=== PATIENT | female | born 2000 | race American Indian/Alaskan Native ===

== ENCOUNTER 2018-07-21 14:20 | Emergency (ER) | payer SELFPAY ==
[2018-07-21] MEDS ORDERED: NORCO 5/325 PO STA (17:34)
[2018-07-21] MEDS ORDERED: XYLOCAINE 2% INFILTRATI STA (17:34)
--- NOTE | 2018-07-21 17:40 | Emergency Department Report ---
- General Chief Complaint: Wound/Laceration Stated Complaint: FELL CUT ANKLE Time Seen by Provider: 07/21/18 17:30 Source: patient Mode of arrival: Ambulatory Limitations: No Limitations - History of Present Illness -: hour(s) (5) Location: other (rightheel ) Place: home (fall down steps andhit foot on something) Patient Tetanus UTD: No (unsure) Context: accidental Associated Symptoms: denies: loss of feeling/numbness, suspect foreign body present, unable to move injured part, weakness followed by dizziness, nausea/ vomiting, fever, other Treatments Prior to Arrival: bandage - Related Data Previous Rx's Medication Instructions Recorded Last Taken Type Naproxen [Naprosyn TAB] 500 mg PO BID #20 tablet 06/24/14 Unknown Rx Acetaminophen/Codeine [Tylenol #3] 1 tab PO Q6H PRN #15 tab 07/21/18 Unknown Rx Chlorhexidine Gluconate [Hibiclens] 10 ml TP BID #240 liquid 07/21/18 Unknown Rx cephALEXin [Keflex] 500 mg PO Q6HR #40 capsule 07/21/18 Unknown Rx Allergies Allergy/AdvReac Type Severity Reaction Status Date / Time No Known Allergies Allergy Verified 07/21/18 14:43 ED Review of Systems ROS: Stated complaint: FELL CUT ANKLE Other details as noted in HPI Constitutional: denies: chills Eyes: denies: eye pain ENT: denies: ear pain Respiratory: denies: cough, orthopnea Cardiovascular: denies: chest pain, palpitations Endocrine: denies: intolerance to cold, intolerance to heat Gastrointestinal: denies: nausea, vomiting Musculoskeletal: denies: back pain Skin: denies: rash, lesions, change in color, change in hair/nails Neurological: denies: weakness Psychiatric: denies: anxiety, depression ED Past Medical Hx - Past Medical History Previous Medical History?: No - Surgical History Past Surgical History?: No - Social History Smoking Status: Never Smoker Substance Use Type: None - Medications Home Medications: Home Medications Medication Instructions Recorded Confirmed Last Taken Type Naproxen [Naprosyn TAB] 500 mg PO BID #20 tablet 06/24/14 Unknown Rx Acetaminophen/Codeine [Tylenol #3] 1 tab PO Q6H PRN #15 tab 07/21/18 Unknown Rx Chlorhexidine Gluconate [Hibiclens] 10 ml TP BID #240 liquid 07/21/18 Unknown Rx cephALEXin [Keflex] 500 mg PO Q6HR #40 capsule 07/21/18 Unknown Rx ED Physical Exam - General Limitations: No Limitations General appearance: alert, in no apparent distress - Head Head exam: Present: atraumatic, normocephalic - Eye Eye exam: Present: normal appearance - ENT ENT exam: Present: mucous membranes moist - Neck Neck exam: Present: normal inspection - Respiratory Respiratory exam: Present: normal lung sounds bilaterally. Absent: respiratory distress - Cardiovascular Cardiovascular Exam: Present: regular rate, normal rhythm. Absent: systolic murmur, diastolic murmur, rubs, gallop - GI/Abdominal GI/Abdominal exam: Present: soft, normal bowel sounds - Extremities Exam Extremities exam: Present: normal inspection, other (the Achilles tendon was visualized and intact. Coon's test is normal for range of motion of ankle, foot and phalanges) - Expanded Lower Extremity Exam Right Hip exam: Absent: full ROM Upper Leg exam: Absent: full ROM Knee exam: Absent: full ROM Lower Leg exam: Absent: full ROM Ankle exam: Absent: full ROM Neuro vascular tendon exam: Present: no vascular compromise. Absent: abnormal cap refill Gait: Positive: antalgic 1 - laceration 2 - jagged laceration. coon testneg - Back Exam Back exam: Present: normal inspection, full ROM. Absent: muscle spasm, paraspinal tenderness, vertebral tenderness - Neurological Exam Neurological exam: Present: alert, oriented X3, CN II-XII intact - Psychiatric Psychiatric exam: Present: normal affect, normal mood - Skin Skin exam: Present: warm, dry, intact, normal color. Absent: rash ED Course Vital Signs 07/21/18 14:41 Temperature 98.4 F Pulse Rate 106 H Respiratory 16 Rate Blood Pressure 137/117 O2 Sat by Pulse 98 Oximetry - Laceration /Wound Repair Right Foot Wound Location: lower extremity Wound Length (cm): 6 Wound's Depth, Shape: irregular Wound Explored: clean Irrigated w/ Saline (ccs): 200 Betadine Prep?: Yes Anesthesia: 1% Lidocaine Wound Debrided: minimal Wound Repaired With: sutures Suture Size/Type: 3:0, proline Sterile Dressing Applied?: Yes ED Medical Decision Making - Medical Decision Making 13 sutures placed with no complications. Discussed with patient in detail wound management and the need for appropriate follow-up for wound reevaluation and suture removal Critical care attestation.: If time is entered above; I have spent that time in minutes in the direct care of this critically ill patient, excluding procedure time. ED Disposition Clinical Impression: Foot laceration Disposition: - TO HOME OR SELFCARE Is pt being admited?: No Does the pt Need Aspirin: No Condition: Stable Instructions: Laceration (ED), Suture Care (ED), Crutch Instructions (ED) Prescriptions: Acetaminophen/Codeine [Tylenol #3] 1 tab PO Q6H PRN #15 tab PRN Reason: Pain cephALEXin [Keflex] 500 mg PO Q6HR #40 capsule Chlorhexidine Gluconate [Hibiclens] 10 ml TP BID #240 liquid Referrals: PRIMARY CARE, [Primary Care Provider] - 3-5 Days [facility] [Provider Group] - 3-5 Days (Suture evaluation for removal in 12-14 days. Wound recheck in 3)
[2018-07-21] MEDS ORDERED: NACL 0.9% 500 ML IR ONE (17:48)
[2018-07-21] MEDS ORDERED: TENIVAC IM STA (17:54)
[2018-07-21] MEDS ORDERED: BOOSTRIX IM ONE (18:35)
[2018-07-21 19:11] VITALS: BP 103/74
== END 2018-07-21 19:31 | disposition home or self-care (01) ==
LOC: ED 14:20
DX: S91.311A Laceration without foreign body, right foot, initial encounter (principal); W10.8XXA Fall (on) (from) other stairs and steps, initial encounter; Y93.89 Activity, other specified; Y92.89 Other specified places as the place of occurrence of the external cause; Y99.8 Other external cause status
CPT/HCPCS: 90471; 90714; 90715

== ENCOUNTER 2019-07-15 17:26 | Emergency (ER) | payer MEDICAID ==
[2019-07-15 19:43] LABS: Basophils % (Auto) 0.8 % (0.0-1.8); Eosinophils # (Auto) 0.1 K/mm3 (0.0-0.4); Eosinophils % (Auto) 0.9 % (0.0-4.3); Hematocrit 35.5 % (30.3-42.9); Hemoglobin 11.7 gm/dl (10.1-14.3); Lymphocytes # (Auto) 1.1 K/mm3 (1.2-5.4); Lymphocytes % (Auto) 19.5 % (13.4-35.0); Mean Corpuscular HGB Conc 33 % (30-34); Mean Corpuscular Volume 82 fl (79-97); Monocytes # (Auto) 0.4 K/mm3 (0.0-0.8); Monocytes % (Auto) 6.4 % (0.0-7.3); Platelet Count 214 K/mm3 (140-440); Red Blood Count 4.32 M/mm3 (3.65-5.03); Red Cell Distribution Width 14.6 % (13.2-15.2)
[2019-07-15 20:08] LABS: Alanine Aminotransferase 9 units/L (7-56); BUN/Creatinine Ratio 15; Blood Urea Nitrogen 6 mg/dL (7-17); Hemolysis Index 0
[2019-07-15 20:30] VITALS: BP 116/77
[2019-07-15 20:38] LABS: Bilirubin,Urine NEG (Negative); Blood,Urine NEG (Negative); Color,Urine Yellow (Yellow); Mucus,Urine 3+ /HPF
[2019-07-15] MEDS ORDERED: FAMOTIDINE 20 MG TAB PO ONE (20:57)
[2019-07-15] MEDS ORDERED: ACETAMINOPHEN 500 MG TAB PO ONE (20:57)
[2019-07-15] MEDS ORDERED: METOCLOPRAMIDE 10 MG TAB PO ONE (20:57)
--- NOTE | 2019-07-15 21:04 | Emergency Department Report ---
ED N/V/D HPI - General Chief complaint: Abdominal Pain Stated complaint: 12WKS /CHEST PAIN/VOMIT Source: patient Mode of arrival: Ambulatory Limitations: No Limitations - History of Present Illness Initial comments: Patient is a A0 18-year-old -[place] female who is approximately 12 weeks gestation and presents to the ED with complaint of persistent interm ittent nausea and vomiting for the last 1 week. Patient states that she's not been able to keep anything down especially in the last 2 days. Patient denies dizziness, fever, chills, cough, abdominal pain, vaginal bleeding, vaginal discharge, diarrhea, dysuria, sore throat, cough or chest pain, urinary urgency and frequency or headache. MD complaint: nausea, vomiting -: Sudden, week(s) (1) Description of Vomiting: food contents, watery Associated Abdominal Pain: Yes (Mildly diffuse) Location: diffuse Radiation: none Severity: mild Pain Scale: 1 Quality: aching, dull Consistency: intermittent Improves with: none Worsens with: none Context: other () Associated Symptoms: denies other symptoms, loss of appetite, nausea/vomiting. denies: myalgias, chest pain, cough, diaphoresis, fever/chills, headaches, malaise, rash, dysuria, shortness of breath, syncope, weakness - Related Data Previous Rx's Medication Instructions Recorded Last Taken Type Naproxen [Naprosyn TAB] 500 mg PO BID #20 tablet 06/24/14 Unknown Rx Acetaminophen/Codeine [Tylenol #3] 1 tab PO Q6H PRN #15 tab 07/21/18 Unknown Rx Chlorhexidine Gluconate [Hibiclens] 10 ml TP BID #240 liquid 07/21/18 Unknown Rx cephALEXin [Keflex] 500 mg PO Q6HR #40 capsule 07/21/18 Unknown Rx Vit-Fe Fumar-FA [ 1 tab PO QDAY #60 tablet 07/15/19 Unknown Rx Vitamin] Promethazine [Phenergan] 25 mg PO Q6HR PRN #30 tab 07/15/19 Unknown Rx Allergies Allergy/AdvReac Type Severity Reaction Status Date / Time No Known Allergies Allergy Verified 07/15/19 17:52 ED Review of Systems ROS: Stated complaint: 12WKS /CHEST PAIN/VOMIT Other details as noted in HPI Constitutional: denies: chills, fever Eyes: denies: eye pain, eye discharge, vision change ENT: denies: ear pain, throat pain Respiratory: denies: cough, shortness of breath, wheezing Cardiovascular: denies: chest pain, palpitations Endocrine: no symptoms reported Gastrointestinal: nausea, vomiting. denies: diarrhea Genitourinary: denies: urgency, dysuria, discharge Musculoskeletal: denies: back pain, joint swelling, arthralgia Skin: denies: rash, lesions Neurological: denies: headache, weakness, paresthesias Psychiatric: denies: anxiety, depression Hematological/Lymphatic: denies: easy bleeding, easy bruising ED Past Medical Hx - Past Medical History Previous Medical History?: No - Surgical History Past Surgical History?: No - Social History Smoking Status: Never Smoker Substance Use Type: None - Medications Home Medications: Home Medications Medication Instructions Recorded Confirmed Last Taken Type Naproxen [Naprosyn TAB] 500 mg PO BID #20 tablet 06/24/14 Unknown Rx Acetaminophen/Codeine [Tylenol #3] 1 tab PO Q6H PRN #15 tab 07/21/18 Unknown Rx Chlorhexidine Gluconate [Hibiclens] 10 ml TP BID #240 liquid 07/21/18 Unknown Rx cephALEXin [Keflex] 500 mg PO Q6HR #40 capsule 07/21/18 Unknown Rx Vit-Fe Fumar-FA [ 1 tab PO QDAY #60 tablet 07/15/19 Unknown Rx Vitamin] Promethazine [Phenergan] 25 mg PO Q6HR PRN #30 tab 07/15/19 Unknown Rx ED Physical Exam - General Limitations: No Limitations General appearance: alert, in no apparent distress - Head Head exam: Present: atraumatic, normocephalic, normal inspection - Eye Eye exam: Present: normal appearance, PERRL, EOMI Pupils: Present: normal accommodation - ENT ENT exam: Present: normal exam, normal orophraynx, mucous membranes moist, TM's normal bilaterally, normal external ear exam - Neck Neck exam: Present: normal inspection, full ROM - Respiratory Respiratory exam: Present: normal lung sounds bilaterally. Absent: respiratory distress, wheezes, rales, rhonchi, chest wall tenderness, accessory muscle use, decreased breath sounds - Cardiovascular Cardiovascular Exam: Present: regular rate, normal rhythm, normal heart sounds. Absent: systolic murmur, diastolic murmur, rubs, gallop - GI/Abdominal GI/Abdominal exam: Present: soft, normal bowel sounds. Absent: tenderness, guarding, hyperactive bowel sounds, hypoactive bowel sounds, organomegaly - Extremities Exam Extremities exam: Present: normal inspection, full ROM, normal capillary refill - Back Exam Back exam: Present: normal inspection, full ROM - Neurological Exam Neurological exam: Present: alert, oriented X3, CN II-XII intact, normal gait, reflexes normal - Psychiatric Psychiatric exam: Present: normal affect, normal mood - Skin Skin exam: Present: warm, dry, intact, normal color. Absent: rash ED Course Vital Signs 07/15/19 07/15/19 17:56 20:28 Temperature 97.9 F 98.2 F Pulse Rate 81 69 Respiratory 16 16 Rate Blood Pressure 113/68 Blood Pressure 116/77 [Right] O2 Sat by Pulse 98 99 Oximetry ED Medical Decision Making - Lab Data Result diagrams: 07/15/19 19:12 07/15/19 19:12 - Medical Decision Making This is a 18-year-old female who presented to the ED with intractable nausea and vomiting intermittently for the last 1 week. Patient is approximately 12 weeks gestation. In the ED, patient is alert and oriented 3 and is not in distress. Lab test results were reviewed and are all nonactionable. Patient was treated for nausea and vomiting in the ED and also given a prescription for antiemetics. Patient was advised to follow-up with her [facility] physician 7-10 days for reevaluation or return to the ED immediately if symptoms get worse. - Differential Diagnosis hyperemesis gravidarum; ; viral gastroenteritis Critical care attestation.: If time is entered above; I have spent that time in minutes in the direct care of this critically ill patient, excluding procedure time. ED Disposition Clinical Impression: Hyperemesis gravidarum Disposition: DC-01 TO HOME OR SELFCARE Is pt being admited?: No Does the pt Need Aspirin: No Condition: Stable Instructions: Abdominal Pain (ED), Hyperemesis Gravidarum (ED) Additional Instructions: Take medications with food, drink plenty fluids and follow up with your primary care physician or [facility] physician in 7-10 days for reevaluation. Return to the ED immediately if symptoms get worse. Prescriptions: Promethazine [Phenergan] 25 mg PO Q6HR PRN #30 tab PRN Reason: Nausea Vit-Fe Fumar-FA [ Vitamin] 1 tab PO QDAY #60 tablet Referrals: PRIMARY CARE, [Primary Care Provider] - 3-5 Days Time of Disposition: 20:59 Print Language: DUTCH
== END 2019-07-15 21:37 | disposition home or self-care (01) ==
LOC: ED 17:26
DX: O21.0 Mild hyperemesis gravidarum (principal); Z79.899 Other long term (current) drug therapy; Z3A.12 12 weeks gestation of pregnancy
CPT/HCPCS: 36415; 80053; 81001; 83690; 84702; 85025

== ENCOUNTER 2020-01-08 19:27 | Inpatient (IN) | payer MEDICAID ==
[2020-01-08] MEDS ORDERED: LACTATED RINGERS 1,000 ML ONE (20:20)
[2020-01-08] MEDS ORDERED: LIDOCAINE (2%) 20 MG/1 ML VIAL 20 ML MDV INFILTRATI ONE (20:23)
[2020-01-08] MEDS ORDERED: TERBUTALINE 1 MG/1 ML INJ SUB-Q PRN (20:23)
[2020-01-08] MEDS ORDERED: ePHEDrine SULFATE 50 MG/1 ML INJ IV PRN (20:23)
[2020-01-08] MEDS ORDERED: fentaNYL 100 MCG/2 ML INJ IV PRN (20:23)
[2020-01-08] MEDS ORDERED: AMPICILLIN/NS 2 GM/100 ML 2 GM/100 ML BAG IV ONE (20:23)
--- NOTE | 2020-01-08 20:38 | History and Physical Report ---
History of Present Illness Date of examination: 01/08/20 Date of admission: 01/08/2020 Chief complaint: Contractions History of present illness: 19 y.o. presents to L&D with complaint of contractions since 10:00 AM today. Patient denies leaking of fluid or vaginal bleeding. Patient reports good movement. Patient received care at [facility] and records are available. LMP 04/11/2019. EDC 01/16/2020. significant for the following: + chlamydia (treated with Azithromycin); anemia (supplemented with iron); GBS positive; late entry to care, obesity. labs are as follows: B+, antibody screen negative, rubella immune, HIV negative, hepatitis B surface antigen negative, RPR nonreactive, hemoglobin electrophoresis AA, gonorrhea negative, chlamydia positive/negative, trichomonas negative, HSV 2 negative, diabetes screen 74, GBS positive. Past History Past Medical History: no pertinent history Past Surgical History: no surgical history [facility] [employer] [facility] History: chlamydia (treated and cured during ). denies: gonorrhea, hepatitis B, herpes, HIV, syphilis, trichomonas Family/Genetic History: none Social history: single, full code. denies: smoking, alcohol abuse, prescription drug abuse, IV drug use - Obstetrical History Expected Date of Delivery: 01/16/20 Actual Gestation: 38 Week(s) 6 Day(s) : 1 Para: 0 Hx # Term Pregnancies: 0 Number of Pregnancies: 0 Spontaneous Abortions: 0 Induced : 0 Number of Living Children: 0 Medications and Allergies Allergies Allergy/AdvReac Type Severity Reaction Status Date / Time No Known Allergies Allergy Verified 07/15/19 17:52 Home Medications Medication Instructions Recorded Confirmed Last Taken Type Vit-Fe Fumar-FA [ 1 tab PO QDAY #60 tablet 07/15/19 Unknown Rx Vitamin] Promethazine [Phenergan] 25 mg PO Q6HR PRN #30 tab 07/15/19 Unknown Rx Active Meds: Active Medications Ephedrine Sulfate (Ephedrine Sulfate) 10 mg IV Q2M PRN PRN Reason: Hypotension Fentanyl (Sublimaze) 100 mcg IV Q2H PRN PRN Reason: Labor Pain Oxytocin/Sodium Chloride (Pitocin/Ns 20 Unit/1000ml Drip) 20 units in 1,000 mls @ 125 mls/hr IV DIRECT SARAH Lactated Ringer's (Lactated Ringers) 1,000 mls @ 125 mls/hr IV DIRECT SARAH Ampicillin Sodium (Ampicillin/Ns 2 Gm/100 Ml) 2 gm in 100 mls @ 100 mls/hr IV ONCE ONE; Protocol Stop: 01/08/20 21:22 Ampicillin Sodium (Ampicillin/Ns 1 Gm/50 Ml) 1 gm in 50 mls @ 100 mls/hr IV Q4HR SARAH; Protocol Terbutaline Sulfate (Brethine) 0.25 mg SUB-Q ONCE PRN PRN Reason: Hyperstimulation/Hypertonicity Review of Systems All systems: negative (contractions) - Vital Signs Vital signs: Vital Signs Pulse BP 93 H 125/76 01/08/20 19:43 01/08/20 19:43 Temp Pulse Resp BP Pulse Ox 98.1 F 93 H 18 125/76 01/08/20 19:44 01/08/20 19:44 01/08/20 19:44 01/08/20 19:44 - Physical Exam Abdomen: Positive: normal appearance, soft. Negative: distention, tenderness, guarding, rigidity Genitourinary (Female): Positive: normal external genitalia, normal perenium. Negative: perineal/vulvar lesions (no lesions noted on careful exam with bright light upon admission) Vagina: Positive: normal moisture Uterus: Positive: enlarged (S=D) Anus/Rectum: Positive: normal perianal skin Extremities: Positive: normal. Negative: edema - Obstetrical FHR: category 2 Uterine Contraction Monitor Mode: External Cervical Dilatation: 4.5 (on admission) Cervical Effacement Percentage: 90 station: -2 Results Result Diagrams: 01/08/20 20:25 01/08/20 20:25 All other labs normal. Assessment and Plan A: at 38 6/7 weeks gestation. Labor. GBS positive. P: Admit. Continuous EFM. GBS prophylaxis. Epidural.
[2020-01-08] MEDS ORDERED: OXYTOCIN 20 UNIT/1000ML DRIP 20 UNITS/1,000 ML BAG IV SCH (21:00)
[2020-01-08] MEDS: LACTATED RINGERS 1,000 ML IV SCH (21:26)
[2020-01-08 21:28] LABS: Basophils % (Auto) 0.5 % (0.0-1.8); Eosinophils % (Auto) 0.3 % (0.0-4.3); Hemoglobin 11.8 gm/dl (10.1-14.3); Lymphocytes # (Auto) 1.3 K/mm3 (1.2-5.4); Lymphocytes % (Auto) 19.1 % (13.4-35.0); Mean Corpuscular HGB Conc 32 % (30-34); Mean Corpuscular Volume 78 fl (79-97); Monocytes # (Auto) 0.5 K/mm3 (0.0-0.8); Monocytes % (Auto) 8.1 % (0.0-7.3); Platelet Count 177 K/mm3 (140-440); Red Blood Count 4.77 M/mm3 (3.65-5.03); Red Cell Distribution Width 17.7 % (13.2-15.2)
[2020-01-08 21:58] LABS: Albumin 3.4 g/dL (3.9-5); BUN/Creatinine Ratio 9; Blood Urea Nitrogen 7 mg/dL (7-17); Calcium 9.1 mg/dL (8.4-10.2); Hemolysis Index 255
[2020-01-08 22:02] LABS: Alanine Aminotransferase 12 units/L (7-56)
[2020-01-08] MEDS ORDERED: hydrALAZINE 20 MG/1 ML INJ IV PRN (23:38)
[2020-01-08] MEDS ORDERED: MAGNESIUM SULFATE 4 GM/100 ML BAG IV ONE (23:38)
[2020-01-08] MEDS ORDERED: MAGNESIUM SULFATE 40GM/1000ML 40 GM/1,000 ML BAG IV SCH (23:45)
--- NOTE | 2020-01-08 23:57 | Event Note ---
Date: 01/08/20 Patient is now 7 cm dilated. FSE has been placed to better trace heart rate. Meconium stained amniotic fluid noted upon FSE application/ROM. FHR baseline 135-140 with minimal to moderate variability. Patient positioned in lateral position and oxygen applied per face mask. Several elevated blood pressures noted. Additional labs ordered and urine for protein. Magnesium Sulfate ordered and Hydralazine ordered. Consulted with Dr. Thomas re: this patient, elevated blood pressure, FHR tracing, interventions taken. Patient refuses epidural.
[2020-01-09] MEDS ORDERED: AMPICILLIN/NS 1 GM/50 ML 1 GM/50 ML BAG IV SCH (00:28)
[2020-01-09] MEDS ORDERED: ONDANSETRON 4 MG/2 ML INJ IV ONE (00:50)
[2020-01-09] MEDS ORDERED: ONDANSETRON 4 MG/2 ML INJ ONE (00:52)
--- NOTE | 2020-01-09 01:29 | Event Note ---
Date: 01/09/20 SVE 8/-1 to -2. Patient has strong urge to push; still refuses epidural. Instructed patient to breathe with contractions and not to push yet. Patient positioned in lateral position. FHR baseline 135-140 with minimal to moderate variability and variable FHR decelerations. Position change instituted. Contractions every 2-3 minutes. Uterus palpates soft between contractions. Patient continues to receive magnesium sulfate. BPs stable. Consulted with Dr. Thomas at 1:17 AM re: heart rate tracing, variable decelerations, variability, cervical exam, interventions taken. No new orders received.
[2020-01-09] MEDS ORDERED: LIDOCAINE (2%) 20 MG/1 ML VIAL 20 ML MDV INFILTRATI ONE (01:47)
[2020-01-09] MEDS ORDERED: HYDROcodone/ACETAMINOPHEN 5-325 MG TAB PO PRN ×2 (02:29→02:32)
[2020-01-09] MEDS ORDERED: LANOLIN/ZINC/DIMETHICONE (LANSINOH) 7 GM TP PRN (02:29)
[2020-01-09] MEDS ORDERED: WITCH HAZEL/ GLYCERIN PAD TP PRN (02:29)
--- NOTE | 2020-01-09 03:12 | Procedure Note ---
OB Delivery Note - Delivery Date of Delivery: 01/09/20 Surgeon: DONNA FIGUEROA Estimated blood loss: 200cc - Vaginal Delivery presentation: vertex Delivery position: OA Intrapartum events: meconium, preeclampsia Delivery induction: none Delivery augmentation: rupture of membranes Delivery monitor: external FHT, external uterine, internal FHT Route of delivery: Delivery placenta: spontaneous Delivery cord: 3 umbilical vessels, other (short cord) Delivery laceration: 1st degree (patient refused repair of first degree perineal laceration) Anesthesia: none Delivery comments: Spontaneous vaginal delivery at 01:47 of liveborn male weighing 3.645 kg with apgars of 8/9. Meconium stained amniotic fluid; NICU team present for delivery. Baby delivered easily and gently; short umbilical cord. 3 vessel cord double clamped and cut and baby taken to radiant warmer for suctioning. Spontaneous cry and respirations. Spontaneous delivery of intact placenta and membranes by mc mechanism. EBL 200 cc. Pitocin to IV fluids after delivery of placenta. Fundus firm and midline. Small first degree perineal laceration noted; patient refused repair. Vaginal sweep negative. Sponge count correct.
[2020-01-09 05:47] LABS: Amphetamine Screen,Urine PRESUMPTIVE NEGATIVE; Bacteria,Urine 1+ /HPF (Negative); Benzodiazepines Screen,Urine PRESUMPTIVE NEGATIVE; Bilirubin,Urine NEG (Negative); Blood,Urine LG (Negative); Cocaine Screen,Urine PRESUMPTIVE NEGATIVE; Color,Urine Colorless (Yellow); Methadone Screen,Urine PRESUMPTIVE NEGATIVE; Mucus,Urine FEW /HPF; Opiate Screen,Urine PRESUMPTIVE NEGATIVE; Protein,Urine <15 mg/dL mg/dL (Negative); Urobilinogen,Urine < 2.0 mg/dL (<2.0); WBC,Urine < 1.0 /HPF (0.0-6.0)
[2020-01-09 06:15] LABS: Cannabinoid Screen,Urine PRESUMPTIVE POSITIVE
[2020-01-09] MEDS: DOCUSATE SODIUM 100 MG CAP PO SCH ×2 (10:00→21:51)
--- NOTE | 2020-01-09 11:56 | Progress Note ---
Assessment and Plan A: day 1 S/P . Preeclampsia with severe features. P: Continue magnesium sulfate. Labetalol po for BP control. Continue hydralazine for any markedly elevated blood pressures. Consulted re: this patient. Subjective - Subjective Date of service: 01/09/20 Principal diagnosis: day 1 S/P ; preeclampsia with severe features Interval history: day 1 S/P . Receiving magnesium sulfate and hydralazine; preeclampsia with severe features. Patient denies headache, visual disturbance, cough, shortness of breath. Has swelling of hands and feet. BPs were controlled overnight. Now with several elevated blood pressures again. Labetalol has been ordered. Still has hydralazine ordered for any markedly elevated blood pressures. Patient reports: appetite normal, pain well controlled, flatus, no nauseated : doing well Objective - Vital Signs Latest vital signs: Vital Signs Temp Pulse Resp BP BP 01/09/20 11:14 72 123/63 01/09/20 11:09 69 131/80 01/09/20 10:15 76 146/80 01/09/20 09:26 75 146/79 01/09/20 09:24 98.9 F 75 16 158/105 147/79 01/09/20 09:15 74 153/103 01/09/20 08:15 65 131/72 01/09/20 07:14 77 132/81 01/09/20 07:00 18 01/09/20 06:03 63 134/77 01/09/20 06:00 18 01/09/20 05:48 61 136/77 01/09/20 05:33 68 128/72 01/09/20 05:18 63 113/56 01/09/20 05:03 69 132/73 01/09/20 05:00 18 01/09/20 04:48 61 135/76 01/09/20 04:33 65 141/76 01/09/20 04:18 75 133/76 01/09/20 04:03 77 138/74 01/09/20 04:00 20 01/09/20 03:48 74 135/71 01/09/20 03:33 65 137/79 01/09/20 03:18 70 140/89 01/09/20 03:03 76 126/77 01/09/20 03:00 18 01/09/20 02:48 75 140/75 01/09/20 02:33 89 141/65 01/09/20 02:17 91 H 141/71 01/09/20 02:00 18 01/09/20 01:41 108 H 160/64 01/09/20 01:06 88 100/59 01/09/20 00:58 62 127/70 01/09/20 00:52 80 120/57 01/09/20 00:47 83 126/80 01/09/20 00:41 70 136/63 01/09/20 00:36 93 H 119/57 01/09/20 00:30 80 139/66 01/09/20 00:26 77 136/62 01/09/20 00:20 99 H 156/86 01/09/20 00:17 71 146/87 01/09/20 00:11 78 142/82 01/09/20 00:04 81 137/79 01/08/20 23:54 85 143/77 01/08/20 23:46 77 141/77 01/08/20 23:43 75 129/73 01/08/20 23:40 75 136/67 01/08/20 23:39 175/142 01/08/20 23:34 73 167/97 01/08/20 23:18 82 183/82 01/08/20 23:15 98.3 F 01/08/20 22:03 81 134/76 01/08/20 21:25 18 01/08/20 19:44 98.1 F 93 H 18 125/76 01/08/20 19:43 93 H 125/76 Intake and Output 01/08/20 01/09/20 01/09/20 23:59 07:59 15:59 Output Total 100 2400 1200 Balance -100 -2400 -1200 Output: Urine 100 2400 1200 Indwelling Catheter 2400 1200 Void 100 Other: Total, Output Amount 800 266 7070 # Voids Void 1 Weight 110.677 kg Estimated Blood Loss 200 - Exam Cardiovascular: Present: Regular rate, Normal S1, Normal S2 Lungs: Present: Clear to auscultation Abdomen: Present: normal appearance, soft, normal bowel sounds. Absent: distention, tenderness, guarding, rigidity Uterus: Present: normal, firm, fundal height below umbilicus. Absent: bogginess, tenderness Extremities: Present: normal, edema. Absent: tenderness - Labs Labs: Abnormal lab results 01/08/20 01/08/20 01/08/20 Range/Units 20:25 20:25 20:25 MCV 78 L (79-97) fl MCH 25 L (28-32) pg RDW 17.7 H (13.2-15.2) % [place] % (Auto) 8.1 H (0.0-7.3) % Seg Neutrophils % 72.0 H (40.0-70.0) % Sodium 136 L (137-145) mmol/L Potassium 5.1 H (3.6-5.0) mmol/L Carbon Dioxide 20 L (22-30) mmol/L Magnesium (1.7-2.3) mg/dL Alkaline Phosphatase 209 H (35-129) units/L Lactate Dehydrogenase 382 H (91-180) units/L Albumin 3.4 L (3.9-5) g/dL 01/09/20 Range/Units 06:47 MCV (79-97) fl MCH (28-32) pg RDW (13.2-15.2) % [place] % (Auto) (0.0-7.3) % Seg Neutrophils % (40.0-70.0) % Sodium (137-145) mmol/L Potassium (3.6-5.0) mmol/L Carbon Dioxide (22-30) mmol/L Magnesium 3.70 H (1.7-2.3) mg/dL Alkaline Phosphatase (35-129) units/L Lactate Dehydrogenase (91-180) units/L Albumin (3.9-5) g/dL
--- NOTE | 2020-01-09 13:49 | Event Note ---
Date: 01/09/20 Magnesium level resulted 18.30. Called lab and order put in to redraw mag level. Notified patient and nurse of mag level. Discontinued magnesium sulfate. Patient states she feels fine. She denies any symptoms. Reflexes normal 2+ bilaterally.
[2020-01-09 15:21] LABS: Hematocrit 34.2 % (30.3-42.9); Hemoglobin 10.9 gm/dl (10.1-14.3)
[2020-01-09] MEDS: LACTATED RINGERS 1,000 ML IV SCH ×2 (18:15→21:02)
[2020-01-09] MEDS ORDERED: MAGNESIUM SULFATE 40GM/1000ML 40 GM/1,000 ML BAG IV SCH (19:00)
[2020-01-09] MEDS ORDERED: ACETAMINOPHEN 325 MG TAB PO ONE (20:38)
[2020-01-09] MEDS: FERROUS SULFATE 325 MG TAB PO SCH (21:51)
[2020-01-10] MEDS: FERROUS SULFATE 325 MG TAB PO SCH ×2 (09:47→22:42)
[2020-01-10] MEDS: DOCUSATE SODIUM 100 MG CAP PO SCH ×2 (09:47→22:42)
--- NOTE | 2020-01-10 13:40 | Progress Note ---
Assessment and Plan A: day 2 S/P . Preeclampsia; BP controlled with oral Labetalol. Anemia. P: Continue Labetalol. Continue iron supplementation. Anticipate discharge home tomorrow if patient continues to do well. Subjective - Subjective Date of service: 01/10/20 Principal diagnosis: day 2 S/P ; preeclampsia with severe features Interval history: day 2 S/P . Receiving magnesium sulfate and hydralazine; preeclampsia with severe features. Patient denies headache, visual disturbance, cough, shortness of breath. Has swelling of hands and feet. Patient is receiving Labetalol 100 mg po BID to control blood pressure. Patient reports: appetite normal, voiding normally, pain well controlled, flatus, ambulating normally, no dizzy ambulation, no nauseated : doing well Objective - Vital Signs Latest vital signs: Vital Signs Temp Pulse Resp BP Pulse Ox 01/10/20 09:47 62 129/81 01/10/20 07:29 97.9 F 58 L 20 137/79 96 01/10/20 03:05 98.1 F 77 21 99 01/10/20 03:04 122/77 01/10/20 02:15 71 131/83 01/10/20 02:10 98.4 F 01/10/20 00:15 62 109/56 01/09/20 23:56 60 118/62 01/09/20 23:50 98.4 F 18 01/09/20 23:14 63 113/59 01/09/20 22:15 82 118/69 01/09/20 21:50 67 109/63 01/09/20 21:49 67 109/63 01/09/20 21:14 78 113/69 01/09/20 20:15 66 103/59 01/09/20 19:43 98.1 F 01/09/20 19:14 73 117/73 01/09/20 18:15 98.2 F 01/09/20 18:14 72 113/62 01/09/20 17:15 70 141/63 01/09/20 16:15 100 H 98/55 01/09/20 15:15 92 H 115/64 01/09/20 14:15 85 111/60 Intake and Output 01/09/20 01/10/20 01/10/20 23:59 07:59 15:59 Intake Total 1000 120 Output Total 1200 850 600 Balance -200 -850 -480 Intake: IV 1000 Lactated Ringers 1,000 ml 1000 @ 125 mls/hr IV DIRECT SARAH Rx#:[id number] Oral 120 Output: Urine 1200 850 600 Indwelling Catheter 1200 450 Void 400 600 Other: Total, Intake Amount 120 Total, Output Amount 450 400 600 - Exam Cardiovascular: Present: Regular rate, Normal S1, Normal S2 Lungs: Present: Clear to auscultation Abdomen: Present: normal appearance, soft. Absent: distention, tenderness, guarding, rigidity Uterus: Present: normal, firm, fundal height below umbilicus. Absent: bogginess, tenderness Extremities: Present: normal, edema (mild edema of hands and feet bilaterally). Absent: tenderness - Labs Labs: Abnormal lab results 01/09/20 01/09/20 01/09/20 Range/Units 12:28 15:00 18:04 Magnesium 18.30 H 4.10 H 3.30 H (1.7-2.3) mg/dL 01/10/20 Range/Units 00:21 Magnesium 3.90 H (1.7-2.3) mg/dL
[2020-01-11] MEDS: FERROUS SULFATE 325 MG TAB PO SCH (09:08)
[2020-01-11] MEDS: DOCUSATE SODIUM 100 MG CAP PO SCH (09:08)
--- NOTE | 2020-01-11 10:32 | Progress Note ---
Assessment and Plan - Patient Problems (1) Status post normal vaginal delivery Current Visit: Yes Status: Acute Plan to address problem: PPD 3 - stable Discharge to home today Follow-up at [facility] as needed or in 4 days for BP check (2) Single live Current Visit: Yes Status: Acute (3) Pre-eclampsia Current Visit: Yes Status: Acute Qualifiers: Trimester: third trimester Qualified Code(s): O14.93 - Unspecified pre- eclampsia, third trimester Plan to address problem: Asymptomatic s/p MgSO4 therapy On Labetalol 100mg PO BID Subjective - Subjective Date of service: 01/11/20 Principal diagnosis: PPD #3; s/p ; Pre-eclampsia Interval history: see [facility]-H&P, Event Notes, OB Delivery Procedure Note, PP/[employer] WORK[employer] Progress Notes Patient reports: appetite normal, voiding normally, pain well controlled, ambulating normally, other (denies headache, visual disturbances or RUQ pain), no dizzy ambulation [place]: doing well, other (breast and bottle feeding) Objective - Vital Signs Latest vital signs: Vital Signs Temp Pulse Resp BP BP Pulse Ox 01/11/20 09:53 56 L 16 139/78 95 01/11/20 07:47 98.1 F 77 16 144/76 97 01/11/20 02:44 98.1 F 60 18 130/64 96 01/10/20 22:42 60 123/59 01/10/20 21:00 98.4 F 60 20 123/81 97 01/10/20 15:48 98.1 F 59 L 20 120/76 98 Intake and Output 01/10/20 01/11/20 01/11/20 23:59 07:59 15:59 Intake Total 120 Balance 120 Intake: Oral 120 Other: Total, Intake Amount 120 # Voids Void 1 - Exam Cardiovascular: Present: Regular rate Lungs: Present: Clear to auscultation Abdomen: Present: normal appearance Vulva: both: laceration/episiotomy (healing well) Uterus: Present: normal, firm, fundal height below umbilicus Extremities: Present: normal Comments: scant lochia
--- NOTE | 2020-01-11 10:38 | Discharge Summary ---
Providers - Providers Date of Admission: 01/08/20 21:00 Date of discharge: 01/11/20 Attending physician: THEA GIL Primary care physician: THEA GIL Hospitalization Reason for admission: active labor, IUP at term Delivery: Episiotomy: none Laceration: 1st degree (unrepaired) Other procedures: none complications: none Discharge diagnosis: IUP at term delivered [place] baby: male Hospital course: Complicated by pre-eclampsia. Completed magnesium sulfate therapy. Condition at discharge: Stable Disposition: DC-01 TO HOME OR SELFCARE - Discharge Diagnoses (1) Status post normal vaginal delivery Status: Acute (2) Single live Status: Acute (3) Pre-eclampsia Status: Acute Qualifiers: Trimester: third trimester Qualified Code(s): O14.93 - Unspecified pre- eclampsia, third trimester Plan - Discharge Medications Prescriptions: labetaloL [Labetalol 100mg TAB] 100 mg PO BID #60 tablet - Provider Discharge Summary Activity: routine, no sex for 6 weeks, no heavy lifting 4 weeks, no strenuous exercise Diet: routine Instructions: routine Additional instructions: [] Smoking cessation referral if applicable(refer to patient education folder for contact #) [] Refer to [facility]'s [facility] Booklet Call your doctor immediately for: * Fever > 100.5 * Heavy vaginal bleeding ( >1 pad per hour) * Severe persistent headache * Shortness of breath * Reddened, hot, painful area to leg or breast * Drainage or odor from incision. * Keep incision clean and dry at all times and follow doctor's instructions regarding bathing/showering - Follow up plan Follow up: THEA GIL MD [Primary Care Provider] - 01/15/20 (Call and make an appointment to follow up with [facility] Wednesday, January 15, 2020.) Forms: [facility] Discharge Summary
[2020-01-11 11:19] VITALS: BP 138/80
== END 2020-01-11 11:45 | disposition home or self-care (01) | DRG 775 ==
LOC: TRG 19:27 → LD 21:00 → OB 01-10 03:00
PROVIDERS: ADMIT Obstetrics & Gynecology; ATTEND Obstetrics & Gynecology
PROC: 10E0XZZ Delivery of Products of Conception, External Approach (ICD-10-PCS; principal; 2020-01-09)
DX: O99.824 Streptococcus B carrier state complicating childbirth (principal); O76 Abnormality in fetal heart rate and rhythm complicating labor and delivery; O69.3XX0 Labor and delivery complicated by short cord, not applicable or unspecified; O70.0 First degree perineal laceration during delivery; O77.0 Labor and delivery complicated by meconium in amniotic fluid; O14.14 Severe pre-eclampsia complicating childbirth; Z3A.38 38 weeks gestation of pregnancy; Z37.0 Single live birth
CPT/HCPCS: 36415; 80053; 80307; 81001; 83615; 83735; 84145; 84550; 85014; 85018; 85025; 86592; 86850; 86900; 86901; 88307; G0378; J0290; J2405; J2590; J3010; J3475; J7120

== ENCOUNTER 2021-05-07 20:27 | Emergency (ER) | payer MEDICAID | END 2021-05-07 22:11 | LOC: ED 20:27 | DX: R50.9 Fever, unspecified (principal); R51.9 Headache, unspecified; Z53.21 Procedure and treatment not carried out due to patient leaving prior to being seen by health care provider ==